=== PATIENT | female | born 1965 | race African-American/Black ===

== ENCOUNTER 2016-10-31 09:25 | Emergency (ER) | payer OTHER ==
[2016-10-31 09:43] VITALS: BP 158/108; PULSE 100; TEMP 98.2; BMI 46.0
[2016-10-31] MEDS ORDERED: KETOROLAC TROMETHAMINE 60 MG/2 ML VIAL IM ONE (10:17)
--- NOTE | 2016-10-31 10:18 | PDOC ---
History of Present Illness - General Chief Complaint: Pain Stated Complaint: RT SHOULDER PAIN Time Seen by Provider: 10/31/16 09:51 History Source: Patient Exam Limitations: No Limitations - History of Present Illness Initial Comments: 10/31/16 11:22 My Chief complaint: Right shoulder pain History of present illness: Patient is a 51-year-old female with a history of insulin-dependent diabetes, HTN, hyperlipidemia here today complaining of right anterior shoulder pain since falling at work on 10/29/2016. Patient reports that initially she did not feel any pain to her shoulder however few hours later she did and pain worsened and patient has had difficulty with any movement of her right shoulder. Patient is unable to lift it as usual. Patient went to see employee health at her job at [employer] that day. Patient reports the pain currently as a 9 out of 10 sharp with any movement and no pain when it is immobilized. Patient took ibuprofen last night with some relief of pain. Patient denies any radiation of pain down the right arm. Past History - Past Medical History Allergies/Adverse Reactions: Allergies Allergy/AdvReac Type Severity Reaction Status Date / Time Penicillins Allergy Mild Rash Verified 10/31/16 09:38 Home Medications: Ambulatory Orders FA/Mv,Ca,Iron,Min/Lycopene/Lut [Centrum Tablet] 1 each PO DAILY 03/27/13 Aspirin [ASA -] 81 mg PO DAILY #0 tab.chew 03/31/13 Insulin (Levemir) [Levemir Flexpen -] 15 units SQ HS #0 pen 03/31/13 Metformin HCl [Glucophage -] 850 mg PO BID@0700,1630 #0 tablet 03/31/13 Colesevelam HCl [Welchol] 360 mg PO DAILY 07/09/15 Ibuprofen [Motrin -] 600 mg PO TID PRN 07/09/15 Losartan 50Mg/Hctz 12.5MG [Hyzaar -] 1 tab PO DAILY 07/09/15 Meclizine HCl [Antivert -] 12.5 mg PO PRN 07/09/15 Omeprazole [Prilosec (RX)] 40 mg PO DAILY 07/09/15 Simvastatin [Zocor -] 20 mg PO HS 07/09/15 Sitagliptin Phos/Metformin HCl [Janumet 50-1,000 mg Tablet] 1 tab PO BID Ibuprofen [Motrin] 800 mg PO TID #20 tablet 07/10/15 Levofloxacin [Levaquin -] 500 mg PO DAILY #7 tablet 07/10/15 Meclizine HCl [Antivert -] 25 mg PO TID #20 tablet 07/10/15 Oxycodone HCl/Acetaminophen [Percocet 5-325 mg Tablet] 1 - 2 tab PO Q6H #20 tablet 07/10/15 Anemia: No Asthma: No Cancer: No Cardiac Disorders: No CVA: No COPD: No CHF: No Dementia: No Diabetes: Yes GI Disorders: No Disorders: No HTN: Yes Hypercholesterolemia: Yes Seizures: No Thyroid Disease: No - Surgical History Abdominal Surgery: Yes (HERNIA REPAIR) Appendectomy: No Cardiac Surgery: No Cholecystectomy: No Lung Surgery: No Neurologic Surgery: No Orthopedic Surgery: No - Immunization History Immunization Up to Date: Yes - Psycho/Social/Smoking Cessation Hx Anxiety: No Suicidal Ideation: No Smoking Status: Yes Smoking History: Never smoked Have you smoked in the past 12 months: Yes Number of Cigarettes Smoked Daily: 8 Information on smoking cessation initiated: No Hx Alcohol Use: Yes Drug/Substance Use Hx: No Substance Use Type: Alcohol Hx Substance Use Treatment: No Review of Systems - Review of Systems Able to Perform ROS?: Yes Constitutional: No: Symptoms Reported HEENTM: No: Symptoms Reported Respiratory: No: Symptoms reported Cardiac (ROS): No: Symptoms Reported ABD/GI: No: Symptoms Reported : No: Symptoms Reported Musculoskeletal: Yes: Joint Pain (rt. anterior shoulder), Other (decreased range of motion rt. shoulder). No: Joint Swelling Integumentary: No: Symptoms Reported Neurological: No: Symptoms reported *Physical Exam - Vital Signs Last Vital Signs Temp Pulse Resp BP Pulse Ox 98.2 F 100 H 19 158/108 98 10/31/16 09:38 10/31/16 09:38 10/31/16 09:38 10/31/16 09:38 10/31/16 09:38 - Physical Exam General Appearance: Yes: Appropriately Dressed Neck: negative: Tender, Rigidity, Tender lateral, Tender midline Respiratory/Chest: positive: Lungs Clear, Normal Breath Sounds. negative: Chest Tender, Respiratory Distress Cardiovascular: positive: Regular Rhythm, Regular Rate, S1, S2 Extremity: positive: Normal Capillary Refill, Normal Inspection, Tender (rt. anterior shoulder point tendernes). negative: Normal Range of Motion (rt. shoulder ), Swelling Integumentary: positive: Normal Color Neurologic: positive: Alert, Normal Response, Respond to painful stimul (rt. arm shoulder), Responsive. negative: Numbness, Sensory Deficit (rt. arm/ shoulder) Medical Decision Making - Medical Decision Making 10/31/16 11:24 Patient is a 51-year-old female with a history of insulin-dependent diabetes, HTN, hyperlipidemia here today complaining of right anterior shoulder pain since falling at work on 10/29/2016. Patient reports that initially she did not feel any pain to her shoulder however few hours later she did and pain worsened and patient has had difficulty with any movement of her right shoulder. Patient is unable to lift it as usual. Patient went to see employee health at her job at [employer] that day. Patient reports the pain currently as a 9 out of 10 sharp with any movement and no pain when it is immobilized. Patient took ibuprofen last night with some relief of pain. Patient denies any radiation of pain down the right arm. Denies any other injury patient denies hitting her head. 10/31/16 11:26 Rt. shoulder pain due to fall on 10/29/16 PLAN: rt. shoulder xray reveals small avulsion off the inferior aspect of the glenoid versus calcification. There is a slightly widened joint space which may indicate fluid. The remainder of the study is unremarkable per Dr. Pavon further imaging or orthopedist consult may be of help ibuprofen 600 mg po now ortho consult as out pt. sling rt. arm *DC/Admit/Observation/Transfer Diagnosis at time of Disposition: Right shoulder injury Qualifiers: Encounter type: initial encounter Qualified Code(s): S49.91XA - Unspecified injury of right shoulder and upper arm, initial encounter - Discharge Dispostion Disposition: HOME Condition at time of disposition: Stable - Referrals Referrals: William Finn MD [Staff Physician] - - Patient Instructions Additional Instructions: Follow-up with orthopedist as soon as possible Keep sling on during the day may elevate on pillows at night right arm is may be sleeping in a semi-upright position might help Ibuprofen as needed as directed by sole leveler for pain Return to emergency room if any numbness of right arm or worsening pain Patient voiced understanding of discharge instructions and all questions were answered - Post Discharge Activity Work/School Note: Back to Work
== END 2016-10-31 11:35 | disposition home or self-care (01) ==
LOC: JERFT 09:25
PROC: 3E0233Z Introduction of Anti-inflammatory into Muscle, Percutaneous Approach (ICD-10-PCS; principal; 2016-10-31)
DX: S49.81XA Other specified injuries of right shoulder and upper arm, initial encounter (principal); I10 Essential (primary) hypertension; E11.69 Type 2 diabetes mellitus with other specified complication; Z79.4 Long term (current) use of insulin; Z79.84 Long term (current) use of oral hypoglycemic drugs; E78.00 Pure hypercholesterolemia, unspecified; E78.5 Hyperlipidemia, unspecified; W19.XXXA Unspecified fall, initial encounter; Y93.89 Activity, other specified; Y92.118 Other place in children's home and orphanage as the place of occurrence of the external cause; Y99.0 Civilian activity done for income or pay
CPT/HCPCS: 73030-TC-RT; 99281-25

== ENCOUNTER → 2017-01-27 | Day surgery (SDC) | payer OTHER ==
[2017-01-19 14:05] VITALS: BMI 44.8
[~2017-01-27] MED LIST: DEXAMETHASONE SOD PHOSPHATE/PF 10 MG/ML SDV ONE; KETOROLAC TROMETHAMINE 30 MG/1 ML VIAL ONE; MIDAZOLAM HCL 2 MG/2 ML SINGLE DOSE VIAL ONE; ROCURONIUM BROMIDE 50 MG/5 ML VIAL ONE; ROPIVACAINE HCL 0.5% 30ML VIAL ONE; ceFAZolin SODIUM 1 GM VIAL ONE
[2017-01-27 08:52] VITALS: BP 152/85; PULSE 104; TEMP 99.2
== END | disposition home or self-care (01) ==
LOC: FASU 08:25
PROVIDERS: ATTEND Orthopaedic Surgery
PROC: 0LB14ZZ Excision of Right Shoulder Tendon, Percutaneous Endoscopic Approach (ICD-10-PCS; principal; 2017-01-27)
DX: M75.121 Complete rotator cuff tear or rupture of right shoulder, not specified as traumatic (principal); Z53.09 Procedure and treatment not carried out because of other contraindication; I10 Essential (primary) hypertension; E11.9 Type 2 diabetes mellitus without complications
CPT/HCPCS: 71010-TC; 84703

== ENCOUNTER 2017-02-10 06:28 | Day surgery (SDC) | payer OTHER ==
[2017-02-02 11:47] VITALS: BMI 44.8
[2017-02-10] MEDS ORDERED: LIDOCAINE HCL 1%, 10 MG/ML (50 mL VIAL) IJ ONE (10:25)
[2017-02-10] MEDS ORDERED: ceFAZolin SODIUM 1 GM VIAL ONE (10:28)
[2017-02-10] MEDS ORDERED: MIDAZOLAM HCL 2 MG/2 ML SINGLE DOSE VIAL ONE (10:50)
[2017-02-10] MEDS ORDERED: ONDANSETRON 4 MG/2 ML VIAL ONE (11:04)
[2017-02-10] MEDS: KETOROLAC TROMETHAMINE 30 MG/1 ML VIAL ONE ×2 (12:00→12:01)
[2017-02-10] MEDS ORDERED: ONDANSETRON 4 MG/2 ML VIAL IVPUSH PRN (12:12)
[2017-02-10] MEDS ORDERED: LACTATED RINGERS SOLUTION 1,000 ML IV SCH (12:15)
[2017-02-10 14:37] VITALS: BP 125/75; PULSE 87; TEMP 98.7
--- NOTE | 2017-02-10 22:17 | OP ---
DATE OF OPERATION: 02/10/2017 SURGEON: William Finn MD LABORATORY HELPER: Rima Holley, whose skilled surgical assistance was necessary for the retraction and protection of vital structures, the handling of instrumentation of precise and delicate surgical instrumentation as well as the overall safe conveyance of the procedure. ANESTHESIOLOGIST: Maribel Hayden MD TYPE OF ANESTHESIA: Interscalene nerve b lock with monitored anesthesia care. INFECTION PROPHYLAXIS: Kefzol was given preoperatively for prophylaxis against infection. COMPLICATIONS: None. PREOPERATIVE DIAGNOSIS: Rotator cuff tear, status post fall at work. POSTOPERATIVE DIAGNOSIS: Rotator cuff tear, status post fall at work. PROCEDURE: Arthroscopic right rotator cuff repair. 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 INJECTABLES: Marcaine 0.25% was instilled in the skin prior to skin incision. ESTIMATED BLOOD LOSS: Minimal. INDICATIONS: The patient is a 52-year-old female who is status post fall at work with shoulder pain, weakness, inability to have any weightbearing activities with her arm or overhead motion to the shoulder, not being able to lift the shoulder over head. She had an MRI revealing a full thickness tear of both infraspinatus and supraspinatus tendons with some retraction. No evidence of significant fatty atrophy. No evidence of significant damage to the biceps tendon. There was question of some labral fraying. She also had some degenerative AC joint arthropathy. On physical examination findings, AC joint was completely asymptomatic. She denied a prior history of shoulder injury or shoulder pain. She had no complaints of neck pain, numbness, or tingling in her fingers. We had discussed treatment options. I had recommended surgery as the beast way to treat this. We explained the risks of surgery to include but not be limited to infection, stiffness, continued pain, chance of her rotator cuff may not heal, chance she may need additional surgery to treat the above complication, chance that she could have permanent neurologic injury, permanent pain, leaving her with permanent loss of use and function of the arm and chance she may need additional surgery and treatment to treat the above complication. The patient understands this. She understands the risks that are involved with the procedure. She understands what is involved in terms of the procedure itself, the risks, benefits, and alternatives were explained at length. She understands the expected outcome as well as postoperative course where she is not going to do any active range of motion for the first 6 weeks to allow the tendon to heal back to bone and then begin range of motion and strengthening exercises at 6 weeks. She has identified her right shoulder as the operative site, which was confirmed with the operating staff, and she agrees to proceed with the planned procedure. DESCRIPTION OF PROCEDURE: Previously, the patient had been scheduled 2 other times. The first time, she came in with poorly controlled diabetes, hypertension and she was sent back to have this taken under control, as the patient had stopped taking her medication. When she was seen by a medical doctor, she was cleared, was on her medications but the last attempt at the surgery, was a failed interscalene block and preoperatively she was complaining of nausea and vomiting. In the operating room, she was complaining of difficulty breathing, chest pain, flank pain, and it was felt by all involved, including myself and the anesthesiologist, that it would be best to postpone surgery. She was again seen and cleared. She had been seen by belt operator, her medical doctor and deemed cleared. Today, she has no complaints, feeling well. Her sugar is slightly high, but the anesthesiologist felt it was safe to operate on her today. After administration of interscalene nerve block, the patient was brought into the operating room and placed in the padded beach chair position. All bony prominences were well padded. The arm was examined under anesthesia, she had no signs of adhesive capsulitis. The arm was then prepped and draped in the usual sterile manner. The arthroscope was then placed in the glenohumeral space through a posterolateral portal. Upon entering the shoulder, the patient had obvious synovitis. She had a large to massive rotator cuff tear involving the infraspinatus, supraspinatus, and portion of the tendon. Upon entering the shoulder, the edge of the rotator cuff was identified. Biceps tendon was evaluated. There were no signs of significant biceps tendon injury or disruption of the anchor. There was some mild labral fraying. No significant labral tear. There was some early Outerbridge classification 2 chondromalacia of the humeral head. The anatomic footprint at the greater tuberosity was freshened using arthroscopic shaver then patito. Our attention was then focused on the subacromial space. The patient had a large downsloping hook to the acromion, which was contoured to a flattened acromion using arthroscopic shaver and patito. The labrum was also debrided. Bursectomy was then performed as well identifying the edges of the cuff. The cuff was then mobilized using cuff grasper and provisionally placed arthroscopic cuff elevator. Two anchors were then placed in regular intervals at the junction between the articular surface and greater tuberosity at regular intervals. These then had the FiberTapes passed at regular intervals, placing the FiberTapes at the junction between the posterior and middle third and the middle third and the anterior third. These were then pulled past, secured, dusty-crossed and then these were then secured with a double row suture bridge effect with additional anchors after being loaded into SwiveLock anchors with excellent congregation of the rotator cuff to its anatomic position and excellent watertight coverage of the rotator cuff back to the greater tuberosity. All arthroscopic fluid and debris was then removed using arthroscopic shaver with suction. With the arthroscope inserted, the arm was taken through a range of motion. There was no undue tension on the cuff. There were no signs of impingement with overhead use, with bringing the arm actively abducted and internally rotated. Arthroscopic portals were then closed with 2-0 Vicryl sutures and 3-0 nylon to reapproximate the skin edges. The wounds were then further dressed with Adaptic, 4 x 4 gauze, ABD pad, held in place with supplied MediPore tape. Sling was then placed on the patient's arm and ice machine was then placed on the patient's arm. She was then awoken and transported to the recovery room in stable condition, having tolerated the procedure without incident. Postoperatively, she was going to have passive range of motion only, leaving the sling on most of the time, just taking it off for showering, which she will be able to do on Wednesday. She is going to follow up in the office in 10 days' time. We are going to hold off on formal physical therapy for now and restart we can do active range of motion and strengthening. WILLIAM FINN M.D. [id number]
== END 2017-02-10 14:20 | disposition home or self-care (01) ==
LOC: FASU 06:28
PROVIDERS: ATTEND Orthopaedic Surgery
PROC: 0RBJ4ZZ Excision of Right Shoulder Joint, Percutaneous Endoscopic Approach (ICD-10-PCS; 2017-02-10)
PROC: 0LB14ZZ Excision of Right Shoulder Tendon, Percutaneous Endoscopic Approach (ICD-10-PCS; principal; 2017-02-10 09:00)
DX: S46.011A Strain of muscle(s) and tendon(s) of the rotator cuff of right shoulder, initial encounter (principal); W19.XXXA Unspecified fall, initial encounter; Y93.9 Activity, unspecified; Y92.9 Unspecified place or not applicable; M65.811 Other synovitis and tenosynovitis, right shoulder; M94.211 Chondromalacia, right shoulder
CPT/HCPCS: 84703; 94760

== ENCOUNTER → 2017-09-16 | Day surgery (SDC) | payer OTHER ==
[2017-09-09 11:16] VITALS: BMI 40.7
[~2017-09-16] MED LIST changes: +EPINEPHrine 1:1,000 1 MG/1 ML - 30ML VIAL (INJECTION) ONE; -KETOROLAC TROMETHAMINE 30 MG/1 ML VIAL ONE; +PROPOFOL 20 ML ONE; -ROCURONIUM BROMIDE 50 MG/5 ML VIAL ONE; -ceFAZolin SODIUM 1 GM VIAL ONE
[2017-09-16 06:12] VITALS: BP 163/88; PULSE 106; TEMP 98.3
--- NOTE | 2017-09-16 08:40 | PN ---
Progress Note (short form) - Note Progress Note: This morning, the patient was planned to be brought in for superior capsular reconstruction as documented in her previous office note. At some point during the booking process in my office, the procedure title was changed to rotator cuff repair. I did not recognize this mistake until after the patient had been given sedation for a block but before the block was administered. In order to properly document consent the midazolam must be fully metabolized which should occur in about 10 hours. Due to the time required, I believe it best that this procedure be rescheduled. I did discuss this with the patient and she is agreeing with the plan to delay the procedure. There is no urgency to this procedure and I see no medical consequences to delay.
== END | disposition home or self-care (01) ==
LOC: FASU 05:45
PROVIDERS: ATTEND Orthopaedic Surgery Sports Medicine
PROC: 0LB14ZZ Excision of Right Shoulder Tendon, Percutaneous Endoscopic Approach (ICD-10-PCS; principal; 2017-09-16)
DX: M75.101 Unspecified rotator cuff tear or rupture of right shoulder, not specified as traumatic (principal); Z53.8 Procedure and treatment not carried out for other reasons
CPT/HCPCS: 82962; 84703

== ENCOUNTER 2017-09-30 09:17 | Day surgery (SDC) | payer OTHER ==
[2017-09-24 15:57] VITALS: BMI 40.7
[2017-09-30] MEDS ORDERED: MIDAZOLAM HCL 2 MG/2 ML SINGLE DOSE VIAL ONE (11:51)
[2017-09-30] MEDS ORDERED: DEXAMETHASONE SOD PHOSPHATE/PF 10 MG/ML SDV ONE (11:52)
[2017-09-30] MEDS ORDERED: ROPIVACAINE HCL 0.5% 30ML VIAL ONE (11:52)
[2017-09-30] MEDS ORDERED: SUCCINYLCHOLINE CHLORIDE 200 MG/10 ML VIAL ONE (12:31)
[2017-09-30] MEDS ORDERED: PROPOFOL 20 ML ONE ×3 (12:31→13:01)
[2017-09-30] MEDS ORDERED: LIDOCAINE HCL 2% 100 MG/5 ML DISP.SYRIN ONE (12:32)
[2017-09-30] MEDS ORDERED: ceFAZolin SODIUM 1 GM VIAL ONE (12:45)
[2017-09-30] MEDS ORDERED: ONDANSETRON 4 MG/2 ML VIAL ONE ×2 (13:01→16:59)
[2017-09-30] MEDS ORDERED: DEXAMETHASONE SOD PHOSPHATE 4 MG/1 ML VIAL ONE (13:01)
[2017-09-30] MEDS ORDERED: EPINEPHrine 1:1,000 1 MG/1 ML - 30ML VIAL (INJECTION) ONE (14:47)
[2017-09-30] MEDS ORDERED: ONDANSETRON 4 MG/2 ML VIAL IVPUSH PRN (15:14)
[2017-09-30] MEDS ORDERED: oxyCODONE HCL 5 MG TABLET PO PRN (15:14)
[2017-09-30] MEDS ORDERED: LACTATED RINGERS SOLUTION 1,000 ML IV SCH (15:15)
[2017-09-30] MEDS ORDERED: MINERAL OIL/PETROLATUM,WHITE 3.5 GM TUBE ONE (16:21)
--- NOTE | 2017-09-30 17:41 | OP ---
Operative Note - Note: Operative Date: 09/30/17 Pre-Operative Diagnosis: right shoulder rotator cuff tear Operation: right shoulder arthroscopy, biceps tenodesis, superior capsular reconstruction Implants: decellularized dermis Surgeon: Alex Mathews [employer] Superintendent: Annette More Anesthesiologist/MINE ENGINEER: Lianet Howe Anesthesia: General Estimated Blood Loss (mls): 30 Fluid Volume Replaced (mls): 1,700 Operative Report Dictated: Yes
[2017-09-30 17:52] VITALS: TEMP 98.3
[2017-09-30] MEDS ORDERED: ONDANSETRON 4 MG/2 ML VIAL IVPUSH ONE (18:00)
[2017-09-30 19:38] VITALS: BP 132/62; PULSE 83
--- NOTE | 2017-10-01 11:47 | SURG ---
Surgery Ferry Boat Captain Note Ferry Boat Captain: Annette More PA-C Date of Service: 09/30/17 Diagnosis: right shoulder rotator cuff tear Procedure: right shoulder arthroscopy, biceps tenodesis, superior capsular reconstruction I was present for the entirety of the operative procedure. For further detail, please refer to operative report. Visit type - Case Type Case Type: Scheduled Admission - Emergency Emergency Visit: No - New patient This patient is new to me today: Yes Date on this admission: 09/30/17
--- NOTE | 2017-10-01 15:32 | OP ---
DATE OF OPERATION: 09/30/2017 PREOPERATIVE DIAGNOSIS: Right shoulder recurrent rotator cuff tear. POSTOPERATIVE DIAGNOSIS: Right shoulder recurrent rotator cuff tear. PROCEDURE: Right shoulder arthroscopy with superior capsular reconstruction. ANESTHESIA: Regional and general. POSTOPERATIVE CONDITION: Stable. COMPLICATIONS: None. IMPLANTS: Arthrex PushLock x2, [employer]rex SwiveLock x4. SURGEON: Alex Mathews MD BARREL LAPPER: Annette More, physician assistant commissioner, whose skillful assistance was necessary for the safe and timely performance of this procedure. Ms. More was able to assist in the positioning, driving a camera, tensioning and fixation of soft tissues as well as preparation and insertion of the soft tissue graft. INDICATIONS: This is a pleasant 52-year-old woman who previously underwent arthroscopic rotator cuff repair. MRI demonstrated complete retear with significant atrophy about the rotator cuff and significant retraction. Given these findings, we discussed that a successful repeat rotator cuff repair was unlikely. We discussed the various treatment options including doing nothing, physical therapy, injections, oral medications, reverse total shoulder replacement, interpositional graft. We also discussed superior capsular reconstruction, which is the recommended procedure of choice. This procedure does not fully restore the rotator cuff, rather. The concept is to restore the ligamentous type function of the rotator cuff to help prevent superior migration of the humeral head and provide a better lever including whatever rotator cuff musculature as well as surrounding musculature about the shoulder to help improve motion and comfort. I reviewed surgical risks including bleeding, infection, neurovascular injury, need for further surgery, postoperative pain and stiffness, rupture of the graft, need for reverse total shoulder replacement should this procedure fail. We discussed medical risks such as heart attack, stroke, DVT, PE, and . I reviewed that this has a very slow, arduous rehabilitation process. We discussed postoperative rehabilitation limitations and protocols. I addressed all the patients questions. She voiced understanding that this procedure would hopefully help her improve her motion, strength, and comfort, but will never be the same as her other side or the same as this side was before the injury. Patient voiced understanding and elected to proceed. DESCRIPTION OF PROCEDURE: The patient was brought to the operating room where general anesthesia was administered. She had been previously administered a block in the preoperative holding area. The patient was then placed in the beach-chair position, taking care to pad all the bony prominences. The right upper extremity was then prepped and draped in the usual sterile fashion. A preoperative dose of antibiotics was given, and the usual time-out procedure was performed. Portal sites were now marked out. The posterior portal was established using an 11-blade. The arthroscope was passed into the glenohumeral joint. Examination of the glenohumeral joint demonstrated deep fissuring of the anterior inferior cartilage of the glenoid. The humeral cartilage demonstrated no superficial irregularity or any full-thickness defects. The labrum appeared diffusely degenerative. However, there was no kavya tearing. The biceps did demonstrate degenerative changes, as well. The anterior portal was now established under spinal needle localization. The subscapularis was examined demonstrating it was intact. The supra- and infraspinatus were completely avulsed. They were retracted to the level of the glenoid. There was a small band of teres minor still attached posteriorly. The biceps was now tenotomized. The section in the middle was removed in order for the gearing into the groove. It was seen to retract. Attention was initially turned towards the greater tuberosity. Here, an additional lateral portal was established. The greater tuberosity was now debrided. An arthroscopic cutting device was used to remove the previous sutures, which remained intact and in position on the greater tuberosity, albeit without any rotator cuff attached. The greater tuberosity was debrided down to a layer of bleeding bone. Attention was now turned to the glenoid. Here, electrocautery was used to expose the glenoid neck just deep to the labrum across the anterior-superior and posterior-superior aspect of the glenoid. A rasp was used to roughen the bone. Utilizing percutaneous accessory portal, a posterior anchor was inserted by first drilling and inserting the anchor. The initial anchor did not gain good purchase. This was removed. A 2nd anchor was placed in the same fashion and demonstrated much better purchase. The same technique was repeated anteriorly, where an anchor was inserted into the anterior-superior glenoid neck. Two medial row anchors were now inserted through a cannula which was placed laterally. These were placed in the medial row position. Good purchase was achieved. The sutures were now all drawn out, taking care to avoid tangling of the lateral portal. Utilizing the arthroscopic measuring device, the distances between anchors were measured. The medial anterior-posterior distance was 30 mm, the lateral anterior-posterior distance was 30 mm, the posterior medial-lateral distance, the anterior medial-lateral distance was 38 mm. The graft was cut to this size. Trephinations were made in the graft and the sutures were passed through. The graft was now inserted through the lateral cannula. It was seated well on top of the glenoid utilizing the glenoid anchors in a valente fashion. The glenoid anchors initially had been tied together, and now the additional strands were tied together to turn the graft medially. The graft was seen to lie nicely across the superior aspect of the glenoid. Attention was then turned laterally. Here, the FiberTapes were into clear individual strands. The posterior strands were now loaded into the posterior anchor. Electrocautery was used to free up the tissue on the lateral aspect of the humerus. A posterior-lateral row anchor was now inserted, drawing the graft down onto the greater tuberosity. A 2nd lateral row anchor was inserted more anteriorly in the same fashion. At this point, superior capsule had been reconstructed. In order to provide better mechanical stability to the graft, it was now sutured in using a [id number]-lj-[id number] suture into the remnant of the teres minor. More anteriorly, the remnant of the supra- and infraspinatus was tied to the anterior lateral row suture utilizing a horizontal mattress suture. The remainder of this was then sutured in a [id number] fashion from the remaining supraspinatus to the graft. This completely closed off the capsule and sealed the joint. At this point, any excess sutures were cut and removed. The excess fluid was removed from the joint. The subcutaneous tissue was approximated using 2-0 Vicryl. The skin was closed using 3-0 nylon. Sterile dressings were placed. It should be noted that when we tightened the graft, it 20 degrees of abduction. The patient was extubated and transferred to the recovery room in stable condition. Deborah [id number]
== END 2017-09-30 19:40 | disposition home or self-care (01) ==
LOC: FASU 09:17
PROVIDERS: ATTEND Orthopaedic Surgery Sports Medicine
PROC: 0RSJ4ZZ Reposition Right Shoulder Joint, Percutaneous Endoscopic Approach (ICD-10-PCS; principal; 2017-09-30 13:03)
DX: M75.121 Complete rotator cuff tear or rupture of right shoulder, not specified as traumatic (principal)
CPT/HCPCS: 82962; 84703; 94760

== ENCOUNTER 2020-03-02 16:22 | Emergency (ER) | payer OTHER ==
[2020-03-02 16:31] VITALS: BP 144/70; PULSE 105; TEMP 98.3; BMI 30.9
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
[2020-03-02] MEDS ORDERED: KETOROLAC TROMETHAMINE 60 MG/2 ML VIAL IM ONE (16:46)
[2020-03-02] MEDS ORDERED: KETOROLAC TROMETHAMINE 60 MG/2 ML VIAL ONE (16:47)
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
== END 2020-03-02 17:28 | disposition home or self-care (01) ==
LOC: JERFT 16:22
PROC: 3E023GC Introduction of Other Therapeutic Substance into Muscle, Percutaneous Approach (ICD-10-PCS; principal; 2020-03-02)
DX: M54.5 Low back pain (principal); M25.561 Pain in right knee; W19.XXXA Unspecified fall, initial encounter
CPT/HCPCS: 72100-TC-FY; 73552-TC-LT-FY; 73562-TC-RT-FY; 99284-25

== ENCOUNTER 2020-12-19 04:57 | Day surgery (SDC) | payer OTHER ==
[2020-12-18 09:15] VITALS: BMI 41.8
[2020-12-19 11:54] VITALS: TEMP 98.2
[2020-12-19 12:47] VITALS: BP 116/78; PULSE 99
== END 2020-12-19 12:36 | disposition home or self-care (01) ==
LOC: JASU-ENDO 04:57
PROVIDERS: ATTEND Internal Medicine Gastroenterology
PROC: 0DJD8ZZ Inspection of Lower Intestinal Tract, Via Natural or Artificial Opening Endoscopic (ICD-10-PCS; principal; 2020-12-19 11:23)
DX: Z12.11 Encounter for screening for malignant neoplasm of colon (principal)

== ENCOUNTER 2021-12-31 22:01 | Observation (INO) | payer MEDICARE, OTHER ==
[2022-01-01 01:08] LABS: BASO % 0.6 % (0-2.0); EOS % 0.4 % (0-4.5); HEMATOCRIT 26.8 % (32.4-45.2); HEMOGLOBIN 8.6 GM/dL (10.7-15.3); LYMPH % 15.2 % (8-40); MCH 24.1 pg (25.7-33.7); MCHC 32.1 g/dl (32.0-36.0); MEAN CELL VOLUME 75.2 fl (80-96); MEAN PLT VOLUME 8.9 fl (7.5-11.1); MONO % 7.3 % (3.8-10.2); NEUT % 76.5 % (42.8-82.8); PLATELET COUNT 253 10^3/uL (134-434); RBC 3.56 M/mm3 (3.60-5.2); RDW 17.5 % (11.6-15.6); WHITE BLOOD COUNT 14.1 K/mm3 (4.0-10.0)
[2022-01-01 01:20] LABS: EPI CELLS 8 /uL (0-25.1); HYALINE CASTS 0 /uL (0-3.1); URINE APPEARANCE TURBID; URINE BILIRUBIN 2+ (NEGATIVE); URINE COLOR RED; URINE GLUCOSE (UA) NEGATIVE (NEGATIVE); URINE KETONE NEGATIVE (NEGATIVE); URINE LEUK ESTERASE 2+ (NEGATIVE); URINE NITRITE POSITIVE (NEGATIVE); URINE PROTEIN 3+ (NEGATIVE); URINE RBC 8 /uL (0-23.9); URINE UROBILINOGEN 0.2 mg/dL (0.2-1.0); URINE WBC 0 /uL (0-25.8)
[2022-01-01 01:29] LABS: CALCIUM 8.7 mg/dL (8.5-10.1)
[2022-01-01 01:30] LABS: ALBUMIN 3.3 g/dl (3.4-5.0); BLOOD UREA NITROGEN 21.4 mg/dL (7-18)
[2022-01-01 01:33] LABS: CREATININE 0.9 mg/dL (0.55-1.3)
[2022-01-01 01:35] LABS: BILIRUBIN,TOTAL 0.2 mg/dL (0.2-1); TOT PROT 6.6 g/dl (6.4-8.2)
[2022-01-01] MEDS ORDERED: ALPRAZolam 0.25 MG TABLET PO ONE (03:07)
[2022-01-01] MEDS ORDERED: SODIUM CHLORIDE 1,000 ML IV STA (03:53)
[2022-01-01 05:43] LABS: RETICULOCYTES 1.81 % (0.5-1.5)
[2022-01-01 08:14] VITALS: BMI 40.2
[2022-01-01] MEDS: INSULIN SLIDING SCALE (NOVOLOG) 1 VIAL SQ SCH ×2 (08:30→10:36)
[2022-01-01] MEDS ORDERED: DOXYCYCLINE INJECTION 100 MG in DEXTROSE 5%-WATER 100 ML IVPB SCH (10:00)
[2022-01-01] MEDS ORDERED: NIFEdipine E.R. 90 MG TABLET PO SCH (10:00)
[2022-01-01] MEDS ORDERED: levETIRAcetam 500 MG TABLET (FP) PO SCH (10:00)
[2022-01-01] MEDS ORDERED: CEFTRIAXONE 1 GM in DEXTROSE 5%-WATER - 50 ML IVPB SCH (10:00)
[2022-01-01] MEDS ORDERED: LOSARTAN POTASSIUM 50 MG TABLET PO SCH (10:00)
[2022-01-01] MEDS ORDERED: IRON SUCROSE INJECTION 200 MG in SODIUM CHLORIDE 90 ML IVPB ONE (10:00)
[2022-01-01] MEDS ORDERED: INSULIN (LEVEMIR) 100 UNITS/ML UNITS SQ SCH (10:00)
[2022-01-01] MEDS ORDERED: metroNIDAZOLE 500 MG TABLET PO SCH (11:30)
[2022-01-01 11:39] VITALS: BP 138/64; PULSE 80; TEMP 98.2
[2022-01-01 11:47] LABS: BASO % 0.5 % (0-2.0); EOS % 0.4 % (0-4.5); HEMATOCRIT 25.6 % (32.4-45.2); HEMOGLOBIN 8.3 GM/dL (10.7-15.3); LYMPH % 15.9 % (8-40); MCH 24.8 pg (25.7-33.7); MCHC 32.4 g/dl (32.0-36.0); MEAN CELL VOLUME 76.6 fl (80-96); MEAN PLT VOLUME 8.2 fl (7.5-11.1); MONO % 8.1 % (3.8-10.2); NEUT % 75.1 % (42.8-82.8); PLATELET COUNT 206 10^3/uL (134-434); RBC 3.35 M/mm3 (3.60-5.2); RDW 16.9 % (11.6-15.6); WHITE BLOOD COUNT 10.5 K/mm3 (4.0-10.0)
[2022-01-01 12:13] LABS: BLOOD UREA NITROGEN 14.6 mg/dL (7-18); CALCIUM 8.3 mg/dL (8.5-10.1)
[2022-01-01 12:16] LABS: CREATININE 0.7 mg/dL (0.55-1.3); PHOSPHOROUS 3.2 mg/dL (2.5-4.9)
[2022-01-01 12:17] LABS: BILIRUBIN,TOTAL 0.4 mg/dL (0.2-1)
[2022-01-01 12:19] LABS: MAGNESIUM 2.2 mg/dL (1.8-2.4)
[2022-01-01] MEDS ORDERED: ATORVASTATIN CA 40 MG TABLET (FP) PO SCH (22:00)
[2022-01-01] MEDS ORDERED: PHENYTOIN NA EXTENDED 100 MG CAPSULE (FP) PO SCH (22:00)
== END 2022-01-01 15:36 | disposition home or self-care (01) ==
LOC: JER 22:01 → UNDOADMOB 01-01 03:15 → JERBED 01-01 03:15 → INTOOBSV 01-01 03:15 → JERBED 01-01 07:47 → J6S 01-01 07:47 → JERBED 01-01 12:51
PROVIDERS: ADMIT Hospitalist; ATTEND Nurse Practitioner Acute Care
PROC: 3E013VG Introduction of Insulin into Subcutaneous Tissue, Percutaneous Approach (ICD-10-PCS; principal; 2022-01-01)
PROC: 3E033GC Introduction of Other Therapeutic Substance into Peripheral Vein, Percutaneous Approach (ICD-10-PCS; 2022-01-01)
DX: N93.9 Abnormal uterine and vaginal bleeding, unspecified (principal); R56.9 Unspecified convulsions; E66.01 Morbid (severe) obesity due to excess calories; Z68.41 Body mass index [BMI] 40.0-44.9, adult; R10.2 Pelvic and perineal pain; R11.0 Nausea; E78.00 Pure hypercholesterolemia, unspecified; I10 Essential (primary) hypertension; Z87.738 Personal history of other specified (corrected) congenital malformations of digestive system; E11.9 Type 2 diabetes mellitus without complications; K92.9 Disease of digestive system, unspecified; Z88.0 Allergy status to penicillin; Z87.891 Personal history of nicotine dependence; Z29.8 Encounter for other specified prophylactic measures; D50.9 Iron deficiency anemia, unspecified
CPT/HCPCS: 36415; 36430; 74177-TC; 76830-TC; 80053; 81003; 82607; 82728; 82746; 82962; 83036; 83540; 83550; 83735; 84100; 84703; 85025; 85045; 86850; 86900; 86901; 86922; 87491; 87591; 87661; 93005; 93010; 96365; 96372; 99285-25; C9803-CS; G0378; J1756; P9058; U0003; U0005

== ENCOUNTER 2022-02-22 08:13 | Emergency (ER) | payer MEDICARE ==
[2022-02-22 08:18] VITALS: BP 135/76; PULSE 94; TEMP 97; BMI 38.9
[2022-02-22] MEDS ORDERED: ACETAMINOPHEN 500 MG TABLET (FP) PO ONE (09:40)
[2022-02-22] MEDS ORDERED: ACETAMINOPHEN 325 MG TABLET (FP) ONE (10:15)
== END 2022-02-22 10:23 | disposition home or self-care (01) ==
LOC: JER 08:13
DX: M54.2 Cervicalgia (principal); R22.43 Localized swelling, mass and lump, lower limb, bilateral
CPT/HCPCS: 99283-25

== ENCOUNTER 2022-08-14 16:18 | Emergency (ER) | payer OTHER ==
[2022-08-14 16:30] VITALS: PULSE 82; RESP 18; TEMP 97.9; BMI 41.3
[2022-08-14] MEDS ORDERED: METOCLOPRAMIDE HCL INJECTION 10 MG/2 ML VIAL IVPUSH ONE (16:57)
[2022-08-14] MEDS ORDERED: LACTATED RINGERS SOLUTION 1000 ML INFUS.BAG IV ONE (16:57)
[2022-08-14] MEDS ORDERED: METOCLOPRAMIDE HCL INJECTION 10 MG/2 ML VIAL ONE (17:47)
[2022-08-14 18:28] LABS: BASO % 0.9 % (0-2.0); EOS % 0.8 % (0-4.5); HEMATOCRIT 43.4 % (32.4-45.2); HEMOGLOBIN 13.8 GM/dL (10.7-15.3); LYMPH % 18.5 % (8-40); MCH 26.4 pg (25.7-33.7); MCHC 31.7 g/dl (32.0-36.0); MEAN CELL VOLUME 83.2 fl (80-96); MEAN PLT VOLUME 10.7 fl (7.5-11.1); MONO % 7.1 % (3.8-10.2); NEUT % 72.7 % (42.8-82.8); PLATELET COUNT 191 10^3/uL (134-434); RBC 5.21 M/mm3 (3.60-5.2); RDW 15.4 % (11.6-15.6); WHITE BLOOD COUNT 11.3 K/mm3 (4.0-10.0)
[2022-08-14 18:34] LABS: INR 0.95 (0.83-1.09); PROTHROMBIN TIME (PATIENT) 10.9 SEC (9.7-13.0)
[2022-08-14 18:43] LABS: CALCIUM 9.3 mg/dL (8.5-10.1)
[2022-08-14 18:44] LABS: ALBUMIN 3.5 g/dl (3.4-5.0); BLOOD UREA NITROGEN 20.4 mg/dL (7-18)
[2022-08-14 18:47] LABS: CREATININE 1.1 mg/dL (0.55-1.3)
[2022-08-14 18:49] LABS: BILIRUBIN,TOTAL 0.2 mg/dL (0.2-1)
[2022-08-14] MEDS ORDERED: ACETAMINOPHEN 1000 MG/100 ML BAG IVPB ONE (18:51)
[2022-08-14] MEDS ORDERED: ACETAMINOPHEN INJECTION 100 ML IVPB ONE (19:00)
[2022-08-14] MEDS ORDERED: DEXTROSE 50%-WATER - 25 GM/50 ML VIAL IVPUSH ONE (19:14)
[2022-08-14] MEDS ORDERED: DEXTROSE 50%-WATER 25 GM/50 ML DISP.SYRIN ONE (20:40)
[2022-08-14 22:10] LABS: ERYTHROCYTE SEDIMENTATION RATE 21 mm/hr (0-30)
[2022-08-16 09:00] VITALS: BP 146/76
== END 2022-08-14 23:36 | disposition home or self-care (01) ==
LOC: JER 16:18
PROC: 3E0333Z Introduction of Anti-inflammatory into Peripheral Vein, Percutaneous Approach (ICD-10-PCS; principal; 2022-08-14)
PROC: 3E033GC Introduction of Other Therapeutic Substance into Peripheral Vein, Percutaneous Approach (ICD-10-PCS; 2022-08-14)
PROC: 3E033GC Introduction of Other Therapeutic Substance into Peripheral Vein, Percutaneous Approach (ICD-10-PCS; 2022-08-14)
DX: R51.9 Headache, unspecified (principal)
CPT/HCPCS: 0241U-QW; 36415; 70450-TC; 70496-TC; 70498-TC; 71045-TC-FY; 80053; 83735; 84484; 85025; 85610; 85651; 85730; 86140; 86850; 86900; 86901; 93005; 93010; 99285-25

== ENCOUNTER 2023-03-24 11:54 | Emergency (ER) | payer MEDICARE ==
[2023-03-24 12:36] VITALS: TEMP 98.6; BMI 44.8
[2023-03-24] MEDS ORDERED: SODIUM CHLORIDE 0.9% 500 ML INFUS.BAG IV ONE (13:24)
[2023-03-24 14:26] LABS: BASO % 1.2 % (0-2.0); EOS % 0.6 % (0-4.5); HEMATOCRIT 41.9 % (32.4-45.2); HEMOGLOBIN 13.8 GM/dL (10.7-15.3); LYMPH % 17.8 % (8-40); MCH 26.4 pg (25.7-33.7); MCHC 32.9 g/dl (32.0-36.0); MEAN CELL VOLUME 80.2 fl (80-96); MONO % 5.9 % (3.8-10.2); NEUT % 74.5 % (42.8-82.8); PLATELET COUNT 185 10^3/uL (134-434); RBC 5.23 M/mm3 (3.60-5.2); RDW 15.9 % (11.6-15.6); WHITE BLOOD COUNT 15.5 K/mm3 (4.0-10.0)
[2023-03-24 14:34] LABS: INR 0.89 (0.83-1.09); PROTHROMBIN TIME (PATIENT) 10.3 SEC (9.7-13.0)
[2023-03-24 14:37] LABS: ACTIVATED PTT 27.4 SECONDS (25.2-36.5)
[2023-03-24 14:38] LABS: POTASSIUM 4.3 mmol/L (3.5-5.1)
[2023-03-24 14:41] LABS: CALCIUM 9.5 mg/dL (8.5-10.1)
[2023-03-24 14:42] LABS: ALBUMIN 3.5 g/dl (3.4-5.0); BLOOD UREA NITROGEN 26.2 mg/dL (7-18)
[2023-03-24 14:45] LABS: CREATININE 1.2 mg/dL (0.55-1.3)
[2023-03-24 14:46] LABS: TOT PROT 7.5 g/dl (6.4-8.2)
[2023-03-24 14:47] LABS: BILIRUBIN,TOTAL 0.2 mg/dL (0.2-1)
[2023-03-24 15:49] VITALS: PULSE 104
[2023-03-24 19:13] LABS: BASO % 0.9 % (0-2.0); EOS % 0.7 % (0-4.5); HEMATOCRIT 38.5 % (32.4-45.2); HEMOGLOBIN 12.6 GM/dL (10.7-15.3); LYMPH % 19.1 % (8-40); MCH 26.4 pg (25.7-33.7); MCHC 32.7 g/dl (32.0-36.0); MEAN CELL VOLUME 80.6 fl (80-96); MEAN PLT VOLUME 9.8 fl (7.5-11.1); MONO % 6.1 % (3.8-10.2); NEUT % 73.2 % (42.8-82.8); PLATELET COUNT 168 10^3/uL (134-434); RBC 4.78 M/mm3 (3.60-5.2); RDW 15.7 % (11.6-15.6)
[2023-03-24 19:16] LABS: EPI CELLS 22 /uL (0-25.1); HYALINE CASTS 3 /uL (0-3.1); PH,URINE 5.5 (5.0-8.0); URINE APPEARANCE CLEAR; URINE BACTERIA 18 /uL (0-1359); URINE BILIRUBIN NEGATIVE (NEGATIVE); URINE COLOR YELLOW; URINE GLUCOSE (UA) NEGATIVE (NEGATIVE); URINE KETONE TRACE (NEGATIVE); URINE LEUK ESTERASE TRACE (NEGATIVE); URINE NITRITE NEGATIVE (NEGATIVE); URINE PROTEIN 3+ (NEGATIVE); URINE RBC 6714 /uL (0-23.9); URINE WBC 26 /uL (0-25.8)
[2023-03-24 20:27] VITALS: BP 147/74; RESP 20
== END 2023-03-24 20:46 | disposition home or self-care (01) ==
LOC: JER 11:54
DX: N93.9 Abnormal uterine and vaginal bleeding, unspecified (principal)
CPT/HCPCS: 36415; 71046-TC-FY; 76830-TC; 80053; 81003; 84443; 84484; 84703; 85025; 85610; 85730; 86850; 86900; 86901; 87086; 87186; 93005; 93010; 99284-25

== ENCOUNTER 2023-06-13 07:32 | Emergency (ER) | payer OTHER ==
[2023-06-13 08:10] VITALS: TEMP 98.2; BMI 40.7
[2023-06-13 09:05] LABS: HEMATOCRIT 40.1 % (32.4-45.2); HEMOGLOBIN 12.9 GM/dL (10.7-15.3); MCH 26.7 pg (25.7-33.7); MCHC 32.3 g/dl (32.0-36.0); MEAN CELL VOLUME 82.7 fl (80-96); MEAN PLT VOLUME 9.2 fl (7.5-11.1); PLATELET COUNT 165 10^3/uL (134-434); RBC 4.84 M/mm3 (3.60-5.2); RDW 15.3 % (11.6-15.6); WHITE BLOOD COUNT 11.1 K/mm3 (4.0-10.0)
[2023-06-13 09:06] LABS: INR 0.96 (0.83-1.09); PROTHROMBIN TIME (PATIENT) 11.1 SEC (9.7-13.0)
[2023-06-13 09:17] LABS: POTASSIUM 3.7 mmol/L (3.5-5.1)
[2023-06-13 09:19] LABS: ALBUMIN 3.4 g/dl (3.4-5.0); BLOOD UREA NITROGEN 14.6 mg/dL (7-18); CALCIUM 8.4 mg/dL (8.5-10.1)
[2023-06-13 09:22] LABS: CREATININE 1.1 mg/dL (0.55-1.3)
[2023-06-13 09:25] LABS: BILIRUBIN,TOTAL 0.2 mg/dL (0.2-1)
[2023-06-13 11:56] VITALS: RESP 18
[2023-06-13 13:03] VITALS: BP 118/65; PULSE 63
== END 2023-06-13 13:03 | disposition home or self-care (01) ==
LOC: JER 07:32
DX: R51.9 Headache, unspecified (principal); H04.201 Unspecified epiphora, right side
CPT/HCPCS: 36415; 70450-TC; 70496-TC; 70498-TC; 80053; 85027; 85610; 86850; 86900; 86901; 99285-25